=== PATIENT | male | born 1970 ===

== ENCOUNTER 2022-02-13 14:26 | Emergency (ER) | payer SELFPAY | END 2022-02-13 18:06 | disposition home or self-care (01) | LOC: MW.ED 14:26 | DX: S97.81XA Crushing injury of right foot, initial encounter (principal); F17.210 Nicotine dependence, cigarettes, uncomplicated; W01.198A Fall on same level from slipping, tripping and stumbling with subsequent striking against other object, initial encounter | CPT/HCPCS: 73610-26-LT; 73610-LT; 73630-26-LT; 73630-LT; 99283 ==

== ENCOUNTER 2023-10-01 13:56 | Emergency (ER) | payer SELFPAY ==
[2023-10-01] MEDS: Diphtheria,Pertussis(Acell),Tetanus Vaccine 0.5 ML Syringe IM ONE (15:13)
[2023-10-01] MEDS: Lidocaine 1% 5 ML VIAL INJECT STA (17:12)
== END 2023-10-01 17:21 | disposition home or self-care (01) ==
LOC: MW.ED 13:56
DX: S62.634B Displaced fracture of distal phalanx of right ring finger, initial encounter for open fracture (principal); Z23 Encounter for immunization; F17.210 Nicotine dependence, cigarettes, uncomplicated; Z75.8 Other problems related to medical facilities and other health care; W23.1XXA Caught, crushed, jammed, or pinched between stationary objects, initial encounter
CPT/HCPCS: 12001; 73140-26-F8; 73140-F8; 90471; 90715; 99283; 99283-25; J3490